=== PATIENT | male | born 1955 | race American Indian/Alaskan Native ===

== ENCOUNTER 2018-12-13 10:52 | Day surgery (SDC) | payer OTHER ==
[~2018-12-13 10:52] MED LIST: SODIUM CHLORIDE 0.9% 1000 ML 1,000 ML IV SCH
--- NOTE | 2018-12-13 12:01 | Anesthesia Day of Surgery ---
Anesthesia Day of Surgery - Day of Surgery Patient Examined: Yes Patient H&P Reviewed: Yes Patient is NPO: Yes
--- NOTE | 2018-12-13 12:02 | Anesthesia Consultation ---
Anesthesia Consult and Med Hx Date of service: 12/13/18 - Airway Anesthetic Teeth Evaluation: Edentulous ROM Head & Neck: Adequate Mental/Hyoid Distance: Adequate Mallampati Class: Class I Intubation Access Assessment: Good - Pre-Operative Health Status ASA Pre-Surgery Classification: ASA3 Proposed Anesthetic Plan: MAC - Pulmonary COPD: Yes - Gastrointestinal Hx Gastroesophageal Reflux Disease: Yes - Endocrine Hx Liver Disease: (HEPATITIS C) - Additional Comments Anesthesia Medical History Comments: HIV+
[2018-12-13] MEDS ORDERED: LIDOCAINE MPF (2%) 20 MG/1 ML VIAL 5 ML ONE (12:30)
[2018-12-13] MEDS ORDERED: PROPOFOL 200 MG/20 ML VIAL IV ONE ×2 (13:41)
--- NOTE | 2018-12-13 14:08 | Procedure Note ---
Date of procedure: 12/13/18 Pre-op diagnosis: Colon Polyp Screening/F/H/O Cancer (father) Post-op diagnosis: other (No Colon Polyps noted/Minor,Left Colon Diverticuli/Minor,Internal Hemorrhoid) Procedure: Colonoscopy Anesthesia: MAC Surgeon: YONATHAN HERNANDEZ Estimated blood loss: none Pathology: none Condition: stable Disposition: same day
[2018-12-13 14:50] VITALS: BP 130/84
--- NOTE | 2018-12-13 15:47 | Operative Report ---
PROCEDURE: Colonoscopy. INDICATIONS: This is a 63-year-old -[place] gentleman with an underlying history of HIV and chronic hepatitis C for which he has been treated a year back. He has a family history of cancer. The patient's father had colon cancer in his 60s. Colonoscopy was done as part of colon polyp screening. DESCRIPTION OF PROCEDURE: Procedure was done after getting informed consent. Initial rectal exam was unremarkable. Instrument was passed through the rectum onto the cecum, which was identified with ileocecal valve and appendiceal orifice. Visualization was fair to slightly poor. The mucosa was washed with copious amounts of water. Cecum, ascending colon, transverse colon showed normal mucosa. There were a few minor diverticula noted in the left colon and the rectum showed some minor internal hemorrhoid on the retroverted view. There was no bleeding associated with the procedure. No complications associated with the procedure. ASSESSMENT: Colon polyp screening, family history of colon cancer, prior history of HIV and chronic hepatitis C for which he has been treated. No colon polyps noted. Minor left colon diverticula, minor internal hemorrhoid. The patient will be asked to incorporate some fiber supplements in his diet, can resume home medication, followup in the office in 1-2 weeks' time. The patient will also have an EGD done at a later time as an outpatient because of GERD symptoms. The procedure was done in the GI lab with assistance of the GI lab team, which included RNEden Joshua and the assistance of Anesthesia. JOB# [id number] MECHELLE/EMILY
--- NOTE | 2018-12-13 16:09 | Post Anesthesia Evaluation ---
- Post Anesthesia Evaluation Patient Participated: Yes Airway Patent: Yes Stable Respiratory Function: Yes Nausea/Vomiting: No Temp > 96.8F: Yes Pain Manageable: Yes Adequeate Hydration: Yes Anesthesia Complications: No Block Receding Appropriately: Not Applicable Patient on Ventilator: No
== END 2018-12-13 10:53 | disposition home or self-care (01) ==
LOC: GIO 10:52
DX: Z12.11 Encounter for screening for malignant neoplasm of colon (principal); K57.30 Diverticulosis of large intestine without perforation or abscess without bleeding; K64.8 Other hemorrhoids; B20 Human immunodeficiency virus [HIV] disease; K73.9 Chronic hepatitis, unspecified; K21.9 Gastro-esophageal reflux disease without esophagitis; J44.9 Chronic obstructive pulmonary disease, unspecified; Z98.890 Other specified postprocedural states; Z80.0 Family history of malignant neoplasm of digestive organs
CPT/HCPCS: 45378; J2704; J7030